=== PATIENT | female | born 2000 | race Two or more races ===

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

== ENCOUNTER 2020-06-09 10:54 | Emergency (ER) | payer MEDICAID, OTHER ==
[2020-06-09] MEDS ORDERED: ONDANSETRON 4 MG TAB.RAPDIS PO ONE (11:03)
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
[2020-06-09 11:41] LABS: APPEARANCE,URINE CLOUDY; BILIRUBIN,URINE NEGATIVE (NEGATIVE); COLOR,URINE YELLOW; GLUCOSE, URINE NEGATIVE (NEGATIVE); KETONES,URINE NEGATIVE (NEGATIVE); LEUKOCYTE ESTERASE,URINE LARGE (NEGATIVE); NITRITE,URINE NEGATIVE (NEGATIVE); PROTEIN,URINE 30 mg/dL (NEGATIVE); URINE SPECIFIC GRAVITY 1.006; UROBILINOGEN,URINE NEGATIVE mg/dL (<2.0)
[2020-06-09 11:48] LABS: ADD MANUAL MICROSCOPIC YES
[2020-06-09 11:49] LABS: BACTERIA,URINE 2+ /HPF; RBC,URINE 20-30 /HPF; WBC,URINE 30-50 /HPF
[2020-06-09] MEDS ORDERED: PHENAZOPYRIDINE HCL 200 MG TABLET PO ONE (12:07)
[2020-06-09] MEDS ORDERED: CEPHALEXIN 500 MG CAPSULE PO ONE (12:07)
[2020-06-09 12:18] VITALS: BP 91/57
[2020-06-09 13:09] LABS: CHLAM PCR NOT DETECTED (NOT DETECT)
== END 2020-06-09 12:18 | disposition home or self-care (01) ==
LOC: ER 10:54
DX: N39.0 Urinary tract infection, site not specified (principal); R35.0 Frequency of micturition; R30.0 Dysuria; R31.9 Hematuria, unspecified; R11.0 Nausea; R10.2 Pelvic and perineal pain; R10.9 Unspecified abdominal pain; J45.909 Unspecified asthma, uncomplicated
CPT/HCPCS: 99283; 87086; 81025; 87088; 81001; 87186; 87491; 87591; S0119; J3490

== ENCOUNTER 2020-07-03 01:42 | Emergency (ER) | payer OTHER ==
[2020-07-03 03:07] LABS: ABSOLUTE BASOPHILS # (AUTO) 0.1 10^3/uL (0.0-0.2); ABSOLUTE EOSINOPHILS # (AUTO) 0.1 10^3/uL (0.0-0.6); ABSOLUTE LYMPHOCYTES (AUTO) 2.4 10^3/uL (0.5-4.7); ABSOLUTE MONOCYTES (AUTO) 0.7 10^3/uL (0.1-1.4); ABSOLUTE NEUT (AUTO) 3.9 10^3/uL (1.7-8.2); BASOPHILS % (AUTO) 0.8 % (0-2); EOSINOPHILS % (AUTO) 2.1 % (0-6); HEMATOCRIT 35.5 % (36.0-47.0); HEMOGLOBIN 12.2 g/dL (12.0-15.5); LYMPHOCYTES % (AUTO) 32.9 % (13-45); MEAN CORPUSCULAR HEMOGLOBIN 28.3 pg (27.0-33.4); MEAN CORPUSCULAR HGB CONC 34.4 g/dL (32.0-36.0); MEAN CORPUSCULAR VOLUME 82 fl (80-97); MONOCYTES % (AUTO) 9.5 % (3-13); PLATELET COUNT 244 10^3/uL (150-450); RED BLOOD COUNT 4.32 10^6/uL (3.72-5.28); RED CELL DISTRIBUTION WIDTH 14.2 % (11.5-14.0); SEGMENTED NEUTROPHILS % (AUTO) 54.7 % (42-78); TOTAL CELLS COUNTED % (AUTO) 100 %; WHITE BLOOD COUNT 7.2 10^3/uL (4.0-10.5)
[2020-07-03 03:16] LABS: APPEARANCE,URINE SLIGHTLY-CLOUDY; BILIRUBIN,URINE NEGATIVE (NEGATIVE); CALCIUM OXALATE CRYSTALS,URINE FEW /HPF; COLOR,URINE YELLOW; GLUCOSE, URINE NEGATIVE (NEGATIVE); KETONES,URINE NEGATIVE (NEGATIVE); LEUKOCYTE ESTERASE,URINE TRACE (NEGATIVE); NITRITE,URINE NEGATIVE (NEGATIVE); PROTEIN,URINE NEGATIVE (NEGATIVE); URINE SPECIFIC GRAVITY 1.015
[2020-07-03 03:21] LABS: ALBUMIN 4.2 g/dL (3.7-5.6); ALKALINE PHOSPHATASE 75 U/L (50-135); ANION GAP 9 (5-19); ASPARTATE AMINO TRANSFERASE 23 U/L (5-30); BILIRUBIN,DIRECT 0.2 mg/dL (0.0-0.4); BILIRUBIN,TOTAL 0.3 mg/dL (0.2-1.3); BLOOD UREA NITROGEN 5 mg/dL (7-20); CALCIUM 9.3 mg/dL (8.4-10.2); CARBON DIOXIDE 22 mmol/L (22-30); CHLORIDE 107 mmol/L (98-107); GLUCOSE 100 mg/dL (75-110)
--- NOTE | 2020-07-03 04:53 | ER Document Report ---
ED GI/ - General Chief Complaint: Abdominal Pain Stated Complaint: ABDOMINAL PAIN +7WEEKS PREG Time Seen by Provider: 07/03/20 04:36 Primary Care Provider: [facility] [Provider Group] - 07/05/20 CHAU BASSETT MD [Primary Care Provider] - Follow up as needed Notes: Patient is a G1, P0 19-year-old female who presents emergency department with a chief complaint of right upper quadrant abdominal pain. Patient states that her symptoms started yesterday in the morning. States that she has a sharp pain in her right upper abdomen. Patient is about 7 weeks . Last menstrual cycle was May 12. Patient denies any vaginal bleeding or vaginal discharge. Patient states that she is having some "morning sickness." TRAVEL OUTSIDE OF THE [place] IN LAST 30 DAYS: No - Related Data Allergies/Adverse Reactions: No Known Allergies Allergy (Verified 06/09/20 11:02) Past Medical History - Social History Smoking Status: Unknown if Ever Smoked Family History: Reviewed & Not Pertinent Patient has homicidal ideation: No - Past Medical History Cardiac Medical History: Denies: Hx Heart Attack, Hx Hypertension Pulmonary Medical History: Reports: Hx Asthma - NO PX FOR 3 YEARS Neurological Medical History: Denies: Hx Cerebrovascular Accident, Hx Seizures GI Medical History: Denies: Hx Hepatitis, Hx Hiatal Hernia, Hx Ulcer Infectious Medical History: Denies: Hx Hepatitis Past Surgical History: Reports: Hx Orthopedic Surgery. Denies: Hx Hysterectomy, Hx Mastectomy, Hx Open Heart Surgery Review of Systems - Review of Systems Notes: REVIEW OF SYSTEMS: CONSTITUTIONAL : Denies recent illness. Denies recent unintentional weight loss. Denies fever, chills, or sweats. EENT: Denies eye, ear, throat, or mouth pain, discharge, or symptoms. Denies nasal or sinus congestion. CARDIOVASCULAR: Denies chest pain. RESPIRATORY: Denies shortness of breath, cough, congestion, difficulty breathing, or wheezing. GASTROINTESTINAL: See HPI. GENITOURINARY: Denies difficulty urinating, burning, blood in urine, urgency or frequency. FEMALE GENITOURINARY: See HPI. MUSCULOSKELETAL: Denies neck and back pain. Denies joint pain or swelling. SKIN: Denies rash, itchiness, or lesions HEMATOLOGIC : Denies easy bruising or bleeding. LYMPHATIC: Denies swollen, painful, enlarged glands. NEUROLOGICAL: Denies no numbness or tingling denies weakness. Denies headache. Denies altered mental status. Denies alteration in speech. PSYCHIATRIC: Denies stress, anxiety, alteration in sleep patterns, or depression. All other systems reviewed and negative. Physical Exam - Vital signs Vitals: Temp Pulse Resp BP Pulse Ox 98.3 F 70 18 109/61 100 07/03/20 01:57 07/03/20 01:57 07/03/20 01:57 07/03/20 01:57 07/03/20 01:57 - Notes Notes: PHYSICAL EXAMINATION: GENERAL: Appears well, healthy, well-nourished, no acute distress. HEAD: Normocephalic, atraumatic. EYES: PERRL, conjunctiva normal, all extraocular movements intact, sclera nonicteric ENT: Moist mucous membranes. NECK: Supple, no noticeable swelling, redness, rash. Normal range of motion. LUNGS: Equal breath sounds bilaterally and clear to auscultation. No wheezes rales or rhonchi. CARDIOVASCULAR: S1-S2, regular rate, regular rhythm. Radial pulses 2+, normal. ABDOMEN: Normoactive bowel sounds. Soft, slightly tender right upper quadrant, no guarding, no rebound tenderness, and no masses palpated. EXTREMITIES: Normal strength and range of motion, no pitting or edema. No cyanosis. NEUROLOGICAL: Moves all extremities upon command. Strength 5/5 in all extremities. PSYCH: Normal mood, normal affect. SKIN: Warm, dry. No rash, lesions, ulcerations noted. Normal skin turgor. Course - Re-evaluation Re-evalutation: 07/03/20 06:25 Hematology is unremarkable. Chemistries are also unremarkable. Quantitative hCG is 64,869, consistent with her current noted on ultrasound. There is a 1.2 x 1.1 x 1 subchorionic hemorrhage. heart rate is 113. Patient is 6 weeks and 1 day according to the ultrasound. Patient also has a right corpus luteum cyst at 26 mm. At this time, we will have the patient follow-up with [facility] on Sunday. She is in agreement with this plan. Right upper quadrant ultrasound is unremarkable. Follow-up precautions were given. Verbal discharge instructions were given to the patient. They verbalized understanding. They are stable for discharge. - Vital Signs Vital signs: Temp Pulse Resp BP Pulse Ox 98.5 F 71 12 110/50 L 100 07/03/20 06:31 07/03/20 06:31 07/03/20 06:31 07/03/20 06:31 07/03/20 06:31 - Laboratory Result Diagrams: 07/03/20 02:52 07/03/20 02:52 Laboratory results interpreted by me: 07/03/20 07/03/20 07/03/20 02:52 02:52 02:52 Hct 35.5 L RDW 14.2 H BUN 5 L Creatinine 0.48 L Beta HCG, Quant 01161.00 H Urine Urobilinogen 2.0 H Ur Leukocyte Esterase TRACE H Discharge - Discharge Clinical Impression: Abdominal pain during Qualifiers: Trimester: first trimester Qualified Code(s): O26.891 - Other specified related conditions, first trimester Condition: Stable Disposition: HOME, SELF-CARE Additional Instructions: You were seen today in the emergency department for abdominal pain during . Your ultrasound shows a stable subchorionic hemorrhage and cyst. Please follow-up with [facility] in regards to these results. Please take it easy and do not lift any heavy objects. Do not have sex until you are cleared by [facility]. Forms: Return to Work Referrals: CHAU BASSETT MD [Primary Care Provider] - Follow up as needed [facility] [Provider Group] - 07/05/20
--- NOTE | 2020-07-03 06:09 | RADIOLOGY REPORT (SQ) ---
CLINICAL HISTORY: RUQ abd pain; COMPARISON: None. TECHNIQUE: US ABDOMEN LIMITED 07/03/2020 4:51 AM CDT FINDINGS: Liver is normal in echotexture. Gallbladder is normally distended without wall thickening, gallstones or pericholecystic fluid. Portal vein is patent. Common bile duct measures 3 mm. Right kidney measures 10.4 cm with a 1.1 cm upper pole right renal cyst. IMPRESSION: No definite acute findings.
--- NOTE | 2020-07-03 06:12 | RADIOLOGY REPORT (SQ) ---
CLINICAL HISTORY: RUQ abd pain; COMPARISON: None. TECHNIQUE: US LESS THAN 14 WEEKS 07/03/2020 4:51 AM CDT FINDINGS: The uterus measures 7.9 cm. Intrauterine gestational sac is present with pole measuring 4 mm, corresponding to six weeks one day. heart rate measures 113 bpm. There is a 1.2 x 1.1 x 1.0 cm subchorionic hemorrhage. Both ovaries are normal in appearance with patent flow. There is a possible right corpus luteum cyst measuring 26 mm. IMPRESSION: Single live intrauterine gestation.
[2020-07-03 06:34] VITALS: BP 110/50
== END 2020-07-03 06:35 | disposition home or self-care (01) ==
LOC: ER 01:42
DX: O26.891 Other specified pregnancy related conditions, first trimester (principal); R10.9 Unspecified abdominal pain; Z3A.01 Less than 8 weeks gestation of pregnancy; R10.11 Right upper quadrant pain; O99.511 Diseases of the respiratory system complicating pregnancy, first trimester; J45.909 Unspecified asthma, uncomplicated
CPT/HCPCS: 36415; 76705; 76801; 80053; 81001; 83690; 84702; 85025; 87086; 93976; 99284